=== PATIENT | male | born 1970 | race Caucasian/White ===

== ENCOUNTER → 2024-01-15 | Outpatient (CLI) | payer BC ==
[~2024-01-15] MED LIST: FAMOTIDINE40 MG PO; LUMIGAN50 DRP OPH; ROSUVASTATIN CA40 MG PO; Regadenoson 0.4 MG/5 ML SYR IV ONE; Technetium Tc 99M Tetrofosmi 0.23 MG KIT IJ SCH
== END | disposition home or self-care (01) ==
LOC: CARD 01:13
PROVIDERS: ATTEND Internal Medicine Cardiovascular Disease
DX: R00.1 Bradycardia, unspecified (principal); E78.2 Mixed hyperlipidemia; Z82.49 Family history of ischemic heart disease and other diseases of the circulatory system